=== PATIENT | female | born 1975 | race Hispanic/Latino ===

== ENCOUNTER 2021-11-08 14:19 | Emergency (ER) | payer SELFPAY ==
[2021-11-08] MEDS ORDERED: AMOXICILLIN/K CLAV 875/125MG TAB PO ONE (17:12)
[2021-11-08] MEDS ORDERED: dexAMETHasone 4 MG/ML VIAL IM ONE (17:13)
[2021-11-08] MEDS ORDERED: KETOROLAC 10 MG TAB PO ONE (17:13)
[2021-11-08] MEDS ORDERED: ACETAMINOPHEN W/CODEINE 300-30 MG TAB PO ONE (17:13)
--- NOTE | 2021-11-08 17:35 | Emergency Department Report ---
ED ENT HPI - General Chief complaint: Earache Stated complaint: RT EAR PAIN Time Seen by Provider: 11/08/21 16:59 Source: patient Mode of arrival: Ambulatory Limitations: No Limitations - History of Present Illness Initial comments: 46-year-old white female with no past medical history presents to the emergency department with right ear and facial pain. She states that over the past week and a half she has had intermittent cough, congestion that she has been using some ryjj-beu-vhtiimm allergy medications for, but she states that when she woke up this morning she had severe pain to her right ear with some facial pain that has gotten worse over the past day. She states that she also had a fever when she woke up but she has taken Tylenol and ibuprofen several times today and states that fever has improved. She states that pain is 10 out of 10. MD complaint: sore throat, ear pain -: Sudden, days(s) (1) Location: R ear Severity scale (0 -10): 10 Quality: aching Consistency: constant Associated Symptoms: fever, cough, sore throat, rhinorrhea. denies: gum swelling, toothache, pain with swallowing, tinnitus, hearing loss, discharge from ear - Related Data Previous Rx's Medication Instructions Recorded Last Taken Type Amoxicillin/Potassium Clav 1 each PO BID #14 tab 11/08/21 Unknown Rx [Augmentin 875-125 Tablet] Naproxen [Naprosyn] 500 mg PO BID #14 tab 11/08/21 Unknown Rx methylPREDNISolone [Medrol 4MG 4 mg PO DAILY #1 pack 11/08/21 Unknown Rx DOSEPAK (21 tabs)] Allergies Allergy/AdvReac Type Severity Reaction Status Date / Time No Known Allergies Allergy Verified 11/08/21 18:07 ED Dental HPI - General Chief complaint: Earache Stated complaint: RT EAR PAIN Time Seen by Provider: 11/08/21 16:59 Source: patient Mode of arrival: Ambulatory Limitations: No Limitations - Related Data Previous Rx's Medication Instructions Recorded Last Taken Type Amoxicillin/Potassium Clav 1 each PO BID #14 tab 11/08/21 Unknown Rx [Augmentin 875-125 Tablet] Naproxen [Naprosyn] 500 mg PO BID #14 tab 11/08/21 Unknown Rx methylPREDNISolone [Medrol 4MG 4 mg PO DAILY #1 pack 11/08/21 Unknown Rx DOSEPAK (21 tabs)] Allergies Allergy/AdvReac Type Severity Reaction Status Date / Time No Known Allergies Allergy Verified 11/08/21 18:07 ED Review of Systems ROS: Stated complaint: RT EAR PAIN Other details as noted in HPI Comment: All other systems reviewed and negative Constitutional: fever, malaise. denies: chills Eyes: denies: eye pain, eye discharge, vision change ENT: ear pain, throat pain, congestion. denies: dental pain Respiratory: cough, shortness of breath. denies: SOB with exertion, SOB at rest, wheezing Cardiovascular: denies: chest pain, palpitations, dyspnea on exertion Gastrointestinal: nausea. denies: abdominal pain, vomiting Musculoskeletal: denies: back pain Skin: denies: rash, lesions Neurological: headache. denies: weakness, numbness, paresthesias, confusion, abnormal gait, vertigo ED Past Medical Hx - Past Medical History Previous Medical History?: No - Surgical History Past Surgical History?: No - Social History Smoking Status: Never Smoker - Medications Home Medications: Home Medications Medication Instructions Recorded Confirmed Last Taken Type Amoxicillin/Potassium Clav 1 each PO BID #14 tab 11/08/21 Unknown Rx [Augmentin 875-125 Tablet] Naproxen [Naprosyn] 500 mg PO BID #14 tab 11/08/21 Unknown Rx methylPREDNISolone [Medrol 4MG 4 mg PO DAILY #1 pack 11/08/21 Unknown Rx DOSEPAK (21 tabs)] ED Physical Exam - General Limitations: No Limitations General appearance: alert, in no apparent distress - Head Head exam: Present: atraumatic, normocephalic - Expanded Head Exam Expanded Head exam: Present: general tenderness (To right side of face only) - Eye Eye exam: Present: normal appearance. Absent: conjunctival injection - ENT ENT exam: Present: TM's normal bilaterally, normal external ear exam. Absent: normal exam (Nasal mucosal edema and turbinate swelling to the right side only where entire nose seems to be blocked. Tenderness to touch to right maxillary and frontal sinus areas.), normal orophraynx - Expanded ENT Exam Expanded Teeth exam: Present: normal inspection Throat exam: Positive: tonsillar erythema. Negative: normal inspection (Erythema to posterior oropharynx), tonsillomegaly, tonsillar exudate - Neck Neck exam: Present: normal inspection, lymphadenopathy (Right side only). Absent: full ROM - Respiratory Respiratory exam: Present: normal lung sounds bilaterally. Absent: respiratory distress, wheezes, rales, rhonchi, stridor, chest wall tenderness - Cardiovascular Cardiovascular Exam: Present: regular rate, normal heart sounds - GI/Abdominal GI/Abdominal exam: Present: soft, normal bowel sounds. Absent: distended, tenderness, guarding, rebound, rigid - Extremities Exam Extremities exam: Present: normal inspection, normal capillary refill. Absent: pedal edema, joint swelling, calf tenderness - Back Exam Back exam: Present: normal inspection. Absent: CVA tenderness (R), CVA tenderness (L), vertebral tenderness - Neurological Exam Neurological exam: Present: alert, oriented X3 - Psychiatric Psychiatric exam: Present: normal affect, normal mood - Skin Skin exam: Present: warm, dry, intact, normal color ED Course Vital Signs 11/08/21 11/08/21 14:40 17:46 Temperature 98.7 F 98.2 F Pulse Rate 79 62 Respiratory 18 16 Rate Blood Pressure 119/75 Blood Pressure 149/90 [Right] O2 Sat by Pulse 99 99 Oximetry ED Medical Decision Making - Medical Decision Making 48-year-old black male presents to the emergency department for evaluation of 1 month history of intermittent left ear pain. He states that over the last month he has had pain and drainage to the left ear. He states that pain restarted a few days ago and he has some purulent drainage noted from his ear. He denies fever and states that it feels like his ear is clogged shut. Symptoms and exam consistent with right-sided sinusitis. Given the fact the patient has taken qnys-[id number]-dyfaghn allergy medications for greater than a week along with fever and severe pain, patient will be treated for acute bacterial rhinosinusitis with 7-day course of Augmentin along with Medrol Dosepak. She is given one-time dose of Toradol, Percocet, Decadron 8 mg IM, and first dose of Augmentin in the emergency department for pain. She is advised to take medications as prescribed and follow-up with primary care provider if no improvement or worsening symptoms. She verbalizes understanding of and agreem ent with plan of care. Critical care attestation.: If time is entered above; I have spent that time in minutes in the direct care of this critically ill patient, excluding procedure time. ED Disposition Clinical Impression: Acute bacterial rhinosinusitis Disposition: 01 HOME / SELF CARE / HOMELESS Is pt being admited?: No Does the pt Need Aspirin: No Condition: Stable Instructions: Antibiotic Medicine, Adult, [id number], Sinusitis, Adult, [id number] Additional Instructions: Take medication as prescribed. Increase noncaffeinated fluid intake. Follow-up with primary care provider if no improvement or worsening symptoms. Return to the emergency department as needed. Prescriptions: Amoxicillin/Potassium Clav [Augmentin 875-125 Tablet] 1 each PO BID #14 tab methylPREDNISolone [Medrol 4MG DOSEPAK (21 tabs)] 4 mg PO DAILY #1 pack Naproxen [Naprosyn] 500 mg PO BID #14 tab Referrals: TOD JC MD [Staff Physician] - 3-5 Days Forms: Work/School Release Form(ED) Time of Disposition: 17:37
[2021-11-08 17:53] VITALS: BP 149/90
== END 2021-11-08 17:46 | disposition home or self-care (01) ==
LOC: ED 14:19
DX: J01.90 Acute sinusitis, unspecified (principal); B96.89 Other specified bacterial agents as the cause of diseases classified elsewhere; Z79.899 Other long term (current) drug therapy
CPT/HCPCS: 96372; 99282; J1100